=== PATIENT | male | born 1965 | race Caucasian/White ===

== ENCOUNTER 2016-07-01 09:09 | Day surgery (SDC) | payer BC ==
[2016-06-27 11:20] VITALS: BMI 34.3
--- NOTE | 2016-07-01 07:38 | HP ---
History & Physical Update - History History: No Change - Physical Physical: No Change - Assessment Assessment: No Change - Plan Plan: No Change (51 yo male presenting for planned ACDF C6-[address] Anand De Jesus on 07/01/2016. H&P present in paper chart from 06/26/2016.)
[~2016-07-01 09:09] MED LIST: oxyCODONE HCL 10 MG SUSTAINED ACTING TABLET PO STA
[2016-07-01] MEDS ORDERED: PROPOFOL 20 ML ONE ×9 (09:42→12:41)
[2016-07-01] MEDS ORDERED: SUCCINYLCHOLINE CHLORIDE 200 MG/10 ML VIAL ONE (09:42)
[2016-07-01] MEDS ORDERED: ceFAZolin SODIUM 1 GM VIAL ONE (09:42)
[2016-07-01] MEDS ORDERED: ROCURONIUM BROMIDE 50 MG/5 ML VIAL ONE (09:43)
[2016-07-01] MEDS ORDERED: MIDAZOLAM HCL 2 MG/2 ML SINGLE DOSE VIAL ONE (09:43)
[2016-07-01] MEDS ORDERED: THROMBIN (BOVINE) 5,000 UNIT VIAL TP ONE (10:14)
[2016-07-01] MEDS ORDERED: BUPIVACAINE HCL/PF 2.5 MG/ML - 30 ML VIAL IJ ONE (10:14)
[2016-07-01] MEDS ORDERED: LIDOCAINE 1%-EPI 1:100,000 30 ML MDV IJ ONE (10:14)
[2016-07-01] MEDS ORDERED: methylPREDNISolone ACET (DEPO) 40 MG/1 ML VIAL ONE (10:14)
[2016-07-01] MEDS ORDERED: HYDROmorphone HCL/PF 1 MG/ML VIAL (FOR PYXIS CHARGING ONLY) ONE (10:36)
[2016-07-01] MEDS ORDERED: GUM MASTIC/STORAX/MSAL/ALCOHOL 1 DRP DROPSBTL MC ONE (11:16)
[2016-07-01] MEDS ORDERED: ePHEDrine SULFATE 50 MG/1 ML AMPULE ONE (11:38)
[2016-07-01] MEDS ORDERED: ACETAMINOPHEN 1000 MG/100 ML VIAL (NON FORMULARY) IVPB ONE (12:31)
[2016-07-01] MEDS ORDERED: HYDROmorphone HCL CARPU-JECT 1 MG/1 ML DISP.SYRIN IVPUSH PRN (12:31)
[2016-07-01] MEDS ORDERED: PROMETHAZINE HCL 25 MG/1 ML VIAL IVPUSH PRN (12:31)
[2016-07-01] MEDS ORDERED: ONDANSETRON 4 MG/2 ML VIAL IVPUSH PRN (12:31)
[2016-07-01] MEDS ORDERED: LACTATED RINGERS SOLUTION 1,000 ML IV SCH ×2 (12:45→14:00)
[2016-07-01] MEDS ORDERED: DEXAMETHASONE SOD PHOSPHATE 4 MG/1 ML VIAL ONE (12:58)
[2016-07-01] MEDS ORDERED: NEOSTIGMINE METHYLSULFATE 0.5 MG/ML - 10 ML MDV ONE (13:01)
[2016-07-01] MEDS ORDERED: ONDANSETRON 4 MG/2 ML VIAL IVPB PRN (13:54)
[2016-07-01] MEDS ORDERED: morphine CARPU-JECT 4 MG/1 ML DISP.SYRIN IVPUSH PRN (13:54)
[2016-07-01] MEDS ORDERED: oxyCODONE HCL 5 MG TABLET PO PRN (14:01)
--- NOTE | 2016-07-01 14:11 | OP ---
Operative Note - Note: Operative Date: 07/01/16 Pre-Operative Diagnosis: anterior cervical stenosis Operation: anterior cervical fusion of C6-C7 with microdisectomy Surgeon: Anand De Jesus Director Of Brand Marketing: Josey Matos Anesthesiologist/RESTAURANT CREW MEMBER: Tristan Coyne Specimens Removed: cervical disc Estimated Blood Loss (mls): 20 Fluid Volume Replaced (mls): 2,000 Operative Report Dictated: Yes
[2016-07-01] MEDS ORDERED: diazePAM CARPU-JECT 10 MG/2 ML DISP.SYRIN IVPUSH ONE (14:19)
--- NOTE | 2016-07-01 14:22 | SURG ---
Surgery Animal Impersonator Note Animal Impersonator: Josey Matos PA-C Date of Service: 07/01/16 Diagnosis: cervical stenosis of C6-C7 Procedure: anterior cervical fusion of C6-C7 with microdiscectomy I was present for the entirety of the operative procedure. For further detail, please refer to operative report. Visit type - Case Type Case Type: Scheduled Admission - Emergency Emergency Visit: No - New patient This patient is new to me today: Yes Date on this admission: 07/01/16 - Critical Care Critical Care patient: No
[2016-07-01] MEDS ORDERED: diazePAM CARPU-JECT 10 MG/2 ML DISP.SYRIN IVPUSH PRN (14:25)
[2016-07-01] MEDS ORDERED: ONDANSETRON 4 MG/2 ML VIAL IVPUSH ONE (16:25)
[2016-07-01] MEDS ORDERED: ONDANSETRON 4 MG/2 ML VIAL ONE (16:27)
--- NOTE | 2016-07-01 19:36 | OP ---
DATE OF OPERATION: 07/01/2016 PREOPERATIVE DIAGNOSIS: C6-7 herniated disk. POSTOPERATIVE DIAGNOSIS: C6-7 herniated disk. PROCEDURE PERFORMED: 1. Anterior cervical diskectomy, C6-7. 2. Anterior cervical fusion, C6-7. 3. Placement of prosthetic cage. 4. Placement of instrumentation. SURGEON: Anand De Jesus MD INJECTOR ASSEMBLER: JENNIFER Warner ESTIMATED BLOOD LOSS: 50 mL. IV FLUIDS: Per Anesthesia. COMPLICATIONS: There were none. DISPOSITION: Patient brought to the PACU in stable condition. INDICATION FOR SURGERY: The patient is a 51-year-old gentleman who has been suffering from pain from his neck down his right arm. X-rays and MRI were completed, which noted that he had a herniated disk at C6-7. He had gone through an exhaustive course of treatment for this, which included medications, physical therapy as well as injections. Unfortunately his pain continued to persist despite all this. At this point, risks, benefits, and alternatives were discussed and the patient consented to surgery. OPERATIVE NOTE: Patient was brought to the operating room by the anesthesia staff. After appropriate patient identification was performed, general anesthesia was administered. Appropriate anesthetic lines were placed. SCDs were placed on the patient. Neuro monitoring leads were attached. His arms were tucked in at the sides, with all areas of bony prominences well padded at this time. A shoulder roll was placed underneath his neck to extend his neck to the point that he could tolerate in the preoperative holding area. A needle was taped onto his neck to frandy off the C6-7 location. X-rays taken to confirm this was correct. The needle was removed at this time and 10 mL of lidocaine with epinephrine was injected into his neck at this time. His neck was prepped and draped in a sterile manner. At this point, time-out was completed. An incision was made on the left side of his neck. Dissection was carried down to the platysma and the platysma was cut in line with the skin incision. Next, the interval between the sternocleidomastoid as well as strap muscles was developed. Next, the interval between the carotid sheath as well as trachea and esophagus was developed. Peanuts were used to elevate off the prevertebral fascia. A spinal needle was placed into the C5-6 and C6-7 disks. An x-ray was taken to confirm this is correct. At this point, the longus colli muscles were elevated off and retractor blades were placed in. The microscope was brought in. A [place] pin was placed into the body of C6. A [place] pin was placed into the body of C7. A knife was used to incise the disk and distraction was applied. A Martines was used to remove the disk off the endplate. Using a series of pituitaries, Kerrisons, and curettes, a diskectomy was completed. The endplates were decorticated at this time. A size 8 cage filled with bone graft was placed in. A screw was placed into the body of C6, a screw was placed into the body of C7. AP and lateral x-rays confirmed the instrumentation being in good position. Final tightening was performed at this time. A BETH drain was placed. The platysma was closed with a 2-0 Vicryl suture. Skin was closed with 3-0 Monocryl suture. Dermabond was applied, Steri-Strips were applied, a sterile dressing was applied. Patient was placed supine on the OR bed, extubated in the OR and brought to the PACU in stable condition. Jameson [id number]
[2016-07-01] MEDS: CEFAZOLIN 1 GM/D5W 50 ML IVPB SCH (20:27)
[2016-07-01] MEDS ORDERED: ACETAMINOPHEN 325 MG TABLET (FP) PO PRN (21:00)
[2016-07-01] MEDS: oxyCODONE HCL 5 MG TABLET PO PRN (21:54)
[2016-07-01] MEDS: CYCLOBENZAPRINE HCL 10 MG TABLET (FP) PO PRN (21:54)
[2016-07-01] MEDS ORDERED: ATORVASTATIN CA 20 MG TABLET (FP) PO SCH (22:00)
[2016-07-02] MEDS: oxyCODONE HCL 5 MG TABLET PO PRN (02:00)
[2016-07-02] MEDS: CEFAZOLIN 1 GM/D5W 50 ML IVPB SCH (04:00)
[2016-07-02 04:56] VITALS: BP 141/78; PULSE 97; TEMP 98.6
--- NOTE | 2016-07-02 07:04 | DS ---
[id number] notes since surgery. Alert. Doing well. C/o incisional tenderness but pain managed well with a combination of non-narcotic as well as narcotic medication. Wearing his cervical soft collar. Ambulating hallways as instructed. Pt was straight cath'd at 5PM yesterday secondary to urinary retention (h/o BPH). He has voided on his own late last night. Denies n/v/f/c, CP, SOB, numbness/tingling/weakness/hoarseness or palpitations. OBJECTIVE: Last Vital Signs Temp Pulse Resp BP Pulse Ox 98.6 F 97 H 19 141/78 95 07/02/16 04:55 07/02/16 04:55 07/02/16 04:55 07/02/16 04:55 07/02/16 04:55 PE GENERAL: Awake, alert, and fully oriented, in no acute distress. HEAD: Normal with no signs of trauma. EYES: PERRL, extraocular movements intact, sclera anicteric, conjunctiva clear. NECK: Transverse incision (midline to left lateral neck) c/d/i. Soft. No hematoma. Trachea midline. BETH 15mL serosanguinous LUNGS: CTA b/l anteriorly HEART: RRR EXTREMITIES: 2+ pulses, warm, well-perfused, no edema. NEUROLOGICAL: CN II-XII grossly intact. Normal speech. Gait not observed. PSYCH: Normal mood, normal affect. SKIN: Warm, dry, normal turgor, no rashes or lesions noted. HOSPITAL COURSE: Date of Admission:07/01/16 Date of Discharge: 07/02/16 The patient was admitted to the Med-Surg Unit after an elective repair of their herniated cervical disc. Now, s/p ACDF C6/7. The day of surgery, Tami-operative IV ABX were administered. DVT prophylaxis was achieved with SCDs and early ambulation. The patient ambulated the hallways with assistance. Narcotic and non-narcotic pain management control was achieved with an oral and IV approach. POD #1, the surgical drain was removed fully intact and without incident. An xray was obtained and confirmed hardware placement at C6/7 level, no fractures or dislocations. The patient ambulated with Physical Therapy and no services were recommended upon discharge. Narcotic scripts and or muscle relaxants were checked with [facility] [employer] prior to escribe. The discharge instructions and an oral pain management plan were reviewed with the patient. All questions answered. Above plan discussed with Dr. De Jesus and agreed. Minutes to complete discharge: 20 <HoraciocollinsPepe P - Last Filed: 07/02/16 07:12> Physical Exam: SUBJECTIVE: Patient seen and examined OBJECTIVE: Vital Signs Temperature 98.6 F 07/02/16 04:55 Pulse Rate 97 H 07/02/16 04:55 Respiratory Rate 19 07/02/16 04:55 Blood Pressure 141/78 07/02/16 04:55 O2 Sat by Pulse Oximetry (%) 95 07/02/16 04:55 PHYSICAL EXAM GENERAL: The patient is awake, alert, and fully oriented, in no acute distress. HEAD: Normal with no signs of trauma. EYES: PERRL, extraocular movements intact, sclera anicteric, conjunctiva clear. ENT: Ears normal, nares patent, oropharynx clear without exudates, moist mucous membranes. NECK: Trachea midline, full range of motion, supple. LUNGS: Breath sounds equal, clear to auscultation bilaterally, no wheezes, no crackles, no accessory muscle use. HEART: Regular rate and rhythm, S1, S2 without murmur, rub or gallop. ABDOMEN: Soft, nontender, nondistended, normoactive bowel sounds, no guarding, no rebound, no hepatosplenomegaly, no masses. EXTREMITIES: 2+ pulses, warm, well-perfused, no edema. NEUROLOGICAL: Cranial nerves II through XII grossly intact. Normal speech, gait not observed. PSYCH: Normal mood, normal affect. SKIN: Warm, dry, normal turgor, no rashes or lesions noted. LABS HOSPITAL COURSE: Date of Admission:07/01/16 Date of Discharge: 07/02/16 The patient was admitted to the Med-Surg Unit after an elective repair of their (problem). Now, s/p ( procedure ). The day of surgery, the patient ambulated the hallways with assistance. Narcotic and non-narcotic pain management control was achieved with an oral and IV approach. POD #1, the surgical drain was removed fully intact and without incident. An xray was obtained and confirmed hardware placement at (level of ), no fractures or dislocations. Tami-operative IV ABX were administered. DVT prophylaxis was achieved with SCDs and early ambulation. The patient ambulated with Physical Therapy and no services were recommended upon discharge. Narcotic scripts and or muscle relaxants were checked with [facility] [employer] prior to escibe. The discharge instructions and an oral pain management plan were reviewed with the patient. All questions answered. Above plan discussed with Dr. De Jesus and agreed. Patient seen and examined Agree with Above Xrays D/C Planning <Anand De Jesus - Last Filed: 07/02/16 09:07> Visit type - Case Type Case Type: Scheduled Admission - New patient This patient is new to me today: Yes Date on this admission: 07/02/16 <Pepe Garcia - Last Filed: 07/02/16 07:12>
[2016-07-02] MEDS: CYCLOBENZAPRINE HCL 10 MG TABLET (FP) PO PRN (09:51)
--- NOTE | 2016-07-04 11:56 | PATH ---
Surgical Pathology Report Patient Name: YUAN MATHEWS Med. Rec. #: [id number] /Age/Gender: 1965 (Age: 51) / M Account: [id number] Location: [facility] Taken: 07/01/2016 Received: 07/01/2016 Reported: 07/04/2016 Physicians: Anand De Jesus M.D. Specimen(s) Received C6-7 DISC Clinical History Cervical spinal stenosis Final Diagnosis C6-7 DISC, DISCECTOMY: CARTILAGE WITH DEGENERATIVE CHANGES. Electronically Signed Kimberley Ascencio M.D. Gross Description Received in formalin, labeled "C6-7 disc," is a 2.3 x 2.3 x 0.4 cm aggregate of prieto fragments of fibrocartilaginous tissue. A major account representative portion is submitted in one cassette. 07/02/201607/02/2016
== END 2016-07-02 11:22 | disposition home or self-care (01) ==
LOC: FASU 09:09 → FM/S 17:11 → FASU 07-02 11:22
PROVIDERS: ATTEND Orthopaedic Surgery Orthopaedic Surgery of the Spine
PROC: 0RG10A0 Fusion of Cervical Vertebral Joint with Interbody Fusion Device, Anterior Approach, Anterior Column, Open Approach (ICD-10-PCS; 2016-07-01)
PROC: 0RG10K0 Fusion of Cervical Vertebral Joint with Nonautologous Tissue Substitute, Anterior Approach, Anterior Column, Open Approach (ICD-10-PCS; 2016-07-01)
PROC: 0RB30ZZ Excision of Cervical Vertebral Disc, Open Approach (ICD-10-PCS; principal; 2016-07-01 13:15)
DX: M50.223 Other cervical disc displacement at C6-C7 level (principal)
CPT/HCPCS: 72050-TC; 88304-TC; 94010; 94760; 97116-GP; 97163-GP

== ENCOUNTER 2019-03-08 06:20 | Day surgery (SDC) | payer BC | END 2019-03-08 19:05 | disposition home or self-care (01) | LOC: FASU 06:20 ==